=== PATIENT | male | born 1965 | race African-American/Black ===

== ENCOUNTER 2017-12-11 09:42 | Emergency (ER) | payer MEDICAID ==
[2017-12-11 09:51] VITALS: BP 159/104
--- NOTE | 2017-12-11 10:01 | EDM.PDOC ---
ED HPI GENERAL MEDICAL PROBLEM - General Chief Complaint: Chest Pain Stated Complaint: CHEST PAIN/DISCOMFORT Time Seen by Provider: 12/11/17 09:50 Source of Information: Reports: Patient History Limitations: Reports: No Limitations - History of Present Illness INITIAL COMMENTS - FREE TEXT/NARRATIVE: The patient presents with subtle chest discomfort. This has been going on for over a month. It is throughout most of his chest. He will also get some numbness to the left side of his face and shoulder. He has no shortness of breath. He has no fever, chills, cough, congestion, runny nose, abdominal pain , nausea or vomiting. He also says he is fatigued. He has no swelling or pain in his legs. He does not smoke. He has no heart problems. He does have a family history of heart problems. He went to the walk in clinic and they sent him here. Onset: Gradual Duration: Week(s): (over 1 month) Location: Reports: Chest Quality: Reports: Other ("subtle") Severity: Mild Improves with: Reports: None Worsens with: Reports: None Associated Symptoms: Reports: Chest Pain. Denies: Cough, Fever/Chills, Headaches, Nausea/Vomiting, Shortness of Breath Left Chest Pain Score (Numeric/FACES): 2 - Related Data Allergies Allergy/AdvReac Type Severity Reaction Status Date / Time No Known Allergies Allergy Verified 12/11/17 09:51 Home Meds: Home Meds Lisinopril [Zestril] 40 mg PO DAILY #30 tablet 01/26/16 [Rx] amLODIPine [Norvasc] 5 mg PO DAILY 12/11/17 [History] Past Medical History Cardiovascular History: Reports: Hypertension Social & Family History - Tobacco Use Smoking Status *Q: Former Smoker Used Tobacco, but Quit: Yes Month/Year Tobacco Last Used: 2015 - Caffeine Use Caffeine Use: Reports: None - Recreational Drug Use Recreational Drug Use: No ED ROS GENERAL - Review of Systems Review Of Systems: See Below Constitutional: Reports: No Symptoms HEENT: Reports: No Symptoms Respiratory: Reports: No Symptoms Cardiovascular: Reports: Chest Pain Endocrine: Reports: No Symptoms GI/Abdominal: Reports: No Symptoms : Reports: No Symptoms Musculoskeletal: Reports: No Symptoms ED EXAM, GENERAL - Physical Exam Exam: See Below Exam Limited By: No Limitations General Appearance: Alert, No Apparent Distress Ears: Normal External Exam Nose: Normal Inspection Head: Atraumatic, Normocephalic Neck: Normal Inspection Respiratory/Chest: No Respiratory Distress, Lungs Clear, Normal Breath Sounds Cardiovascular: Regular Rate, Rhythm, No Edema, No Murmur GI/Abdominal: Soft, Non-Tender, No Organomegaly, No Mass Back Exam: Normal Inspection Extremities: Normal Inspection EKG INTERPRETATION EKG Date: 12/11/17 Time: 09:51 Rhythm: NSR Rate (Beats/Min): 95 [place]: Normal P-Wave: Present QRS: Normal ST-T: Elevated (Normal early repol) QT: Normal EKG Interpretation Comments: Q waves in the inferior leads Course - Vital Signs Last Recorded V/S: Last Vital Signs Temp 98.4 F 12/11/17 09:48 Pulse 100 12/11/17 09:48 Resp 12 12/11/17 09:48 BP 159/104 H 12/11/17 09:48 Pulse Ox 100 12/11/17 09:48 - Re-Assessments/Exams Free Text/Narrative Re-Assessment/Exam: 12/11/17 10:03 I ordered an EKG and it looks good. He did not want anything else done. I will discharge him home. Departure - Departure Time of Disposition: 10:05 Disposition: Home, Self-Care 01 Condition: Good Clinical Impression: Atypical chest pain Referrals: Vinod Platt Jr, MD [Primary Care Provider] - 1 Week Additional Instructions: Keep taking your medication as prescribed. Follow up with Dr Platt in 1 week. Please return if you are worse.
== END 2017-12-11 10:29 | disposition home or self-care (01) ==
LOC: JD.ED 09:42
DX: R07.89 Other chest pain (principal); I10 Essential (primary) hypertension; Z87.891 Personal history of nicotine dependence; Z79.899 Other long term (current) drug therapy
CPT/HCPCS: 93005; 93010; 99283; 99285-25

== ENCOUNTER 2019-01-12 20:45 | Emergency (ER) | payer BC ==
--- NOTE | 2019-01-12 21:06 | EDM.PDOC ---
ED HPI GENERAL MEDICAL PROBLEM - General Chief Complaint: ENT Problem Stated Complaint: pt unable to swallow Time Seen by Provider: 01/12/19 21:03 Source of Information: Reports: Patient, RN Notes Reviewed History Limitations: Reports: No Limitations - History of Present Illness INITIAL COMMENTS - FREE TEXT/NARRATIVE: Patient is a 54-year-old male who presents to the ED for the evaluation of difficulty swallowing. The patient states he has had throat and neck pain for around one week, however this is worsened today. He did go to the [facility] walk- in clinic and a strep screen was negative at this time, and he was diagnosed with pharyngitis. He states that his tonsils have been swollen for over a week now and it still feels as if he is swallowing razor blades every time he swallows. He states it is hard to eat, sleep, drink due to the pain. He was provided with prescriptions for prednisone, Tylenol with Codeine, and numbing mouthwash, and Augmentin. He is taken one dose of the Tylenol with Codeine however he does not feel this even helps the pain. The patient denies any troubles breathing, and does not appear to be any respiratory distress at this time. He denies any teeth problems at this time. He has not had his tonsils removed, he further denies any thyroid issues. - Related Data Allergies Allergy/AdvReac Type Severity Reaction Status Date / Time No Known Allergies Allergy Verified 12/11/17 09:51 Home Meds: Home Meds Lisinopril [Zestril] 40 mg PO DAILY #30 tablet 01/26/16 [Rx] amLODIPine [Norvasc] 5 mg PO DAILY 12/11/17 [History] Acetaminophen with Codeine [Acetaminophen-Cod #3] 1 tab PO Q4HR PRN 01/12/19 [ History] Amoxicillin/Potassium Clav [Augmentin 875-125 Tablet] 1 each PO BID 01/12/19 [ History] Diphenhyd/Lidocaine/MagAl/Juan [First-Mouthwash BLM Susp] 10 ml MM QID 01/12/19 [History] Sildenafil Citrate [Sildenafil] 50 mg PO DAILY PRN 01/12/19 [History] hydroCHLOROthiazide [Hydrochlorothiazide] 25 mg PO DAILY 01/12/19 [History] predniSONE [Prednisone] 20 mg PO DAILY 01/12/19 [History] Past Medical History HEENT History: Reports: None Cardiovascular History: Reports: Hypertension Respiratory History: Reports: None Gastrointestinal History: Reports: None Genitourinary History: Reports: None Musculoskeletal History: Reports: None Neurological History: Reports: None Psychiatric History: Reports: None Endocrine/Metabolic History: Reports: None Hematologic History: Reports: None Immunologic History: Reports: None Oncologic (Cancer) History: Reports: None Dermatologic History: Reports: None - Infectious Disease History Infectious Disease History: Reports: None - Past Surgical History Head Surgeries/Procedures: Reports: None Social & Family History - Tobacco Use Smoking Status *Q: Never Smoker - Caffeine Use Caffeine Use: Reports: None - Recreational Drug Use Recreational Drug Use: No ED ROS ENT - Review of Systems Review Of Systems: See Below Constitutional: Denies: Fever, Chills HEENT: Reports: Throat Pain, Throat Swelling Respiratory: Denies: Shortness of Breath Cardiovascular: Reports: No Symptoms Endocrine: Reports: No Symptoms GI/Abdominal: Reports: No Symptoms : Reports: No Symptoms Musculoskeletal: Reports: No Symptoms Skin: Reports: No Symptoms Neurological: Reports: No Symptoms Psychiatric: Reports: No Symptoms Hematologic/Lymphatic: Reports: No Symptoms Immunologic: Reports: No Symptoms ED EXAM, ENT - Physical Exam Exam: See Below Exam Limited By: No Limitations General Appearance: Alert, WD/WN, No Apparent Distress Eye Exam: Bilateral Eye: Normal Inspection Ears: Normal External Exam, Normal Canal, Hearing Grossly Normal, Normal TMs Nose: Normal Inspection, Normal Mucousa, No Blood Mouth/Throat: Normal Inspection, Normal Gums, Normal Lips, Normal Teeth, Pharyngeal Erythema, Tonsillar Erythema, Tonsillar Swelling (bilateral). No: Dental Pain, Drooling, Peritonsillar Mass, Tonsillar Exudates, Trismus Head: Atraumatic, Normocephalic Neck: Normal Inspection, Supple, Full Range of Motion, Tender Lateral (on left side, under the jaw line) Respiratory/Chest: No Respiratory Distress, Lungs Clear, Normal Breath Sounds, No Accessory Muscle Use, Chest Non-Tender Cardiovascular: Normal Peripheral Pulses, Regular Rate, Rhythm, No Murmur Neurological: Alert, Oriented, Normal Cognition, No Motor/Sensory Deficits Psychiatric: Normal Affect, Normal Mood Skin: Warm, Dry, Intact, Normal Color, No Rash Course - Vital Signs Last Recorded V/S: Last Vital Signs Temp 98.3 F 01/12/19 20:49 Pulse 94 06/18/19 20:49 Resp 16 01/12/19 20:49 BP 167/119 H 01/12/19 20:49 Pulse Ox 100 01/12/19 20:49 - Orders/Labs/Meds Orders: Active Orders 24 hr Category Date Time Status CULTURE STREP A CONFIRMATION [RM] Stat Lab 01/12/19 21:22 Results STREP SCRN A RAPID W CULT CONF [RM] Stat Lab 01/12/19 21:14 Ordered Labs: Laboratory Tests 01/12/19 Range/Units 21:29 Monoscreen Negative (NEGATIVE) Meds: Medications Discontinued Medications Generic Name Dose Route Start Last Admin Trade Name Elisha PRN Reason Stop Dose Admin Dexamethasone 10 mg 01/12/19 21:15 01/12/19 21:30 Dexamethasone IM 01/12/19 21:16 10 mg ONETIME ONE Administration Ketorolac Tromethamine 30 mg 01/12/19 21:15 01/12/19 21:30 Toradol IM 01/12/19 21:16 30 mg ONETIME ONE Administration - Re-Assessments/Exams Free Text/Narrative Re-Assessment/Exam: 01/12/19 21:28 Patient presents to the ED for evaluation of difficulty swallowing. I have ordered a repeat strep screen to be obtained, a mono screen, 10 mg IM dexamethasone, he hasn't 30 mg IM Toradol, it appears that he is having trouble swallowing the pills that he has been prescribed does not feel he has been getting adequate pain relief from this. 01/12/19 22:03 Patient's rapid strep screen is negative again at today's ER visit, this will be sent for culture for confirmation. 01/12/19 22:12 [place] screen is also negative. Pt will be re-assessed at bedside. 01/12/19 22:22 Patient states he feels a little bit better, he states that it is not as painful to swallow at this time. He was sleeping upon reexamination. I will discharge him home with conservative management and follow-up as needed. Departure - Departure Time of Disposition: 22:23 Disposition: Home, Self-Care 01 Condition: Fair Clinical Impression: Sore throat (viral), Pharyngitis with viral syndrome - Discharge Information *PRESCRIPTION DRUG MONITORING PROGRAM REVIEWED*: No *COPY OF PRESCRIPTION DRUG MONITORING REPORT IN PATIENT GUCCI: No Instructions: Sore Throat, [id number], Pharyngitis, [id number] Forms: ED Department Discharge Additional Instructions: You have been seen in the ER for your sore throat. Your mononucleosis screen and your rapid strep screen is negative at this ER visit. However your rapid strep screen will be sent for culture for confirmation you will be notified in 24 hours should need further treatment for a streptococcal infection. Recommend that you take ibuprofen 600 mg every 6 hours as needed for further pain relief. You should not need to take the prednisone prescription that was provided at the walk-in clinic, as you received 1 injection of steroids in the ER, this seemed to help the swelling sensation and pain in your throat. You may take the Tylenol with Codeine as previously prescribed if your pain is not relieved by the ibuprofen alone. Please return to the ED if her symptoms should change or worsen. - My Orders Last 24 Hours: My Active Orders 01/12/19 21:14 STREP SCRN A RAPID W CULT CONF [RM] Stat 01/12/19 21:22 CULTURE STREP A CONFIRMATION [RM] Stat - Assessment/Plan Last 24 Hours: My Active Orders 01/12/19 21:14 STREP SCRN A RAPID W CULT CONF [RM] Stat 01/12/19 21:22 CULTURE STREP A CONFIRMATION [RM] Stat
[2019-01-12] MEDS ORDERED: Ketorolac 30 MG/ML SDV IM ONE (21:15)
[2019-01-12] MEDS ORDERED: Dexamethasone 10 MG/ML SDV IM ONE (21:15)
[2019-01-12 22:41] VITALS: BP 138/94
== END 2019-01-12 22:36 | disposition home or self-care (01) ==
LOC: JD.ED 20:45
DX: B34.9 Viral infection, unspecified (principal); J02.9 Acute pharyngitis, unspecified; Z79.899 Other long term (current) drug therapy
CPT/HCPCS: 36415; 86308; 87081; 87430; 96372; 99283; J1100; J1885

== ENCOUNTER 2021-04-24 02:47 | Emergency (ER) | payer BC, OTHER ==
[2021-04-24 02:56] VITALS: BP 187/118; PULSE 104
[2021-04-24] MEDS ORDERED: Sodium Chloride 0.9% 1,000 ML IV SCH (03:15)
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
--- NOTE | 2021-04-24 07:45 | CT ---
Head CT Technique: Multiple axial sections through the brain were obtained. Intravenous contrast was not utilized. Reconstructed coronal and sagittal images were obtained. Comparison: No prior intracranial imaging is available. Findings: Ventricles along with basal cisterns and sulci over the convexities are within normal limits for the patient's age. No abnormal parenchymal densities are seen. No evidence of intracranial hemorrhage is seen. No midline shift or mass-effect is seen. Bone window settings were obtained which show two adjacent retention cysts within the right maxillary sinus. When measured together these findings measure approximately 1.5 cm. There is minimal deformity of the nasal bone likely representing old injury. No acute paranasal sinus findings are seen. Visualized mastoid sinuses show nothing acute. No acute calvarial abnormality is appreciated. Impression: 1. Incidental findings as noted above. 2. No acute intracranial abnormality is appreciated. Diagnostic code #2 I agree with preliminary report from [facility], finalized on 04/24/21, 5:40 AM CDT, code 1
== END 2021-04-24 05:57 | disposition home or self-care (01) ==
LOC: JD.ED 02:47
DX: U07.1 COVID-19 (principal); F10.120 Alcohol abuse with intoxication, uncomplicated; F15.10 Other stimulant abuse, uncomplicated; D72.819 Decreased white blood cell count, unspecified; R00.0 Tachycardia, unspecified; I10 Essential (primary) hypertension; E66.9 Obesity, unspecified; Z87.891 Personal history of nicotine dependence; Z79.899 Other long term (current) drug therapy; Y90.0 Blood alcohol level of less than 20 mg/100 ml
CPT/HCPCS: 36415; 70450; 80053; 80306; 80307; 82947; 83735; 84484; 85007; 85027; 85379; 87635; 93005; 99285; J7030; U0002